=== PATIENT | female | born 1955 | race Caucasian/White ===

== ENCOUNTER → 2017-05-28 | Outpatient (CLI) | payer OTHER ==
[~2017-05-28] MED LIST: CLIN300 PO; IBUP800; Keflex500 MG PO; LEVSOD75; LIOT5; OXYACE5T PO; PENVK250; PROG100; RXOXYACE PO; [UNRECOGNIZED DRUG - REMARK]
[2017-05-30 14:45] LABS: HPV Genotype 16 Not Detected (NOTDET); HPV Genotype 18 Not Detected (NOTDET)
[2017-06-07 14:28] LABS: HPV High Risk Other Not Detected (NOTDET)
== END | disposition home or self-care (01) ==
LOC: LAB 14:47
PROVIDERS: Obstetrics & Gynecology
DX: Z01.419 Encounter for gynecological examination (general) (routine) without abnormal findings (principal)
CPT/HCPCS: 87624; G0123

== ENCOUNTER → 2019-03-18 | Outpatient (CLI) | payer OTHER ==
[2019-03-18 10:21] LABS: Source, Urine Clean Catch
[2019-03-18 11:40] LABS: Bilirubin, Urine Neg (Neg); Blood, Urine Neg (Neg); Glucose Qualitative, Urine Neg (Neg); Ketones, Urine Neg (Neg); Leukocyte Esterase, Urine Neg (Neg); Nitrite, Urine Neg (Neg); Protein, Urine Neg (Neg); Specific Gravity, Urine 1.015 (1.003-1.022); Urobilinogen, Urine NORM (Normal)
[2019-03-18 11:52] LABS: Appearance, Urine Clear (Clear); Color, Urine Yellow (P-Yellow)
== END | disposition home or self-care (01) ==
LOC: LAB SHORT 10:20 → OLS 10:20
PROVIDERS: Internal Medicine
DX: E55.9 Vitamin D deficiency, unspecified (principal); R82.90 Unspecified abnormal findings in urine
CPT/HCPCS: 81003

== ENCOUNTER 2021-03-16 08:30 | Day surgery (SDC) | payer OTHER ==
[~2021-03-16] VITALS: Ht 152.4 cm; Wt 73.9 kg
== END 2021-03-16 11:10 | disposition home or self-care (01) ==
LOC: ORSCSDS 08:30
DX: Z12.11 Encounter for screening for malignant neoplasm of colon (principal); Z86.010 Personal history of colon polyps; Z80.0 Family history of malignant neoplasm of digestive organs; D12.2 Benign neoplasm of ascending colon; D12.3 Benign neoplasm of transverse colon; D12.4 Benign neoplasm of descending colon; D12.5 Benign neoplasm of sigmoid colon; K57.30 Diverticulosis of large intestine without perforation or abscess without bleeding; K64.8 Other hemorrhoids; E03.9 Hypothyroidism, unspecified; Z79.899 Other long term (current) drug therapy
CPT/HCPCS: 88305; J0330; J0461; J2405; J2704; J7120

== ENCOUNTER 2022-01-06 16:46 | Emergency (ER) | payer OTHER ==
[~2022-01-06] VITALS: Ht 152.4 cm; Wt 76.2 kg
[2022-01-06] MEDS ORDERED: EPIPEN0.3 MG/0.3 IM (18:52)
== END 2022-01-06 19:03 | disposition home or self-care (01) ==
LOC: ER 16:46
DX: T63.451A Toxic effect of venom of hornets, accidental (unintentional), initial encounter (principal); R22.0 Localized swelling, mass and lump, head; Y92.9 Unspecified place or not applicable; Z91.041 Radiographic dye allergy status; Z91.09 Other allergy status, other than to drugs and biological substances; Z79.899 Other long term (current) drug therapy
CPT/HCPCS: J1100

== ENCOUNTER 2022-08-03 14:48 | Observation (INO) | payer OTHER ==
[~2022-08-03] VITALS: Ht 152.4 cm; Wt 64.4 kg
[~2022-08-03 14:48] MED LIST changes: +EPIPEN0.3 MG/0.3 IM
[2022-08-03 15:22] LABS: BASOPHILS ABSOLUTE AUTO 0.05 K/mm3 (0.00-0.23); BASOPHILS PERCENT AUTO 0 % (0-2); EOSINOPHILS ABSOLUTE AUTO 0.13 K/mm3 (0.00-0.68); EOSINOPHILS PERCENT AUTO 1 % (0-6); Hematocrit 32.5 % (33.0-51.0); Hemoglobin 10.7 g/dL (11.5-16.0); IMMATURE GRAN ABSOLUTE AUTO 0.13 K/mm3 (0.00-0.10); IMMATURE GRAN PERCENT AUTO 1 % (0-1); LYMPHOCYTES ABSOLUTE AUTO 0.92 K/mm3 (0.84-5.20); LYMPHOCYTES PERCENT AUTO 5 % (21-46); MONOCYTES ABSOLUTE AUTO 1.18 K/mm3 (0.16-1.47); MONOCYTES PERCENT AUTO 6 % (4-13); Mean Corpuscular HGB 31.7 pg (26.0-34.0); Mean Corpuscular HGB Conc 32.9 g/dL (31.5-36.5); Mean Corpuscular Volume 96 fL (80-100); Mean Platelet Volume 10.2 fL (9.1-12.4); NEUTROPHILS ABSOLUTE AUTO 16.53 K/mm3 (1.96-9.15); NEUTROPHILS PERCENT AUTO 87 % (41-73); Platelet Count 260 K/mm3 (150-400); RDW Standard Deviation 49.4 fL (35.1-46.3); Red Blood Cell Count 3.38 M/mm3 (3.80-5.20); White Blood Cell Count 18.94 K/mm3 (4.00-11.30)
[2022-08-03 15:44] LABS: Albumin, Blood 3.2 g/dL (3.4-5.0); Albumin/Globulin Ratio 1.1 (0.8-1.8); Bilirubin, Total 0.3 mg/dL (0.1-1.0); Bun/Creatinine Ratio 28.7 (12.0-20.0); Calcium, Blood 8.7 mg/dL (8.5-10.1); Creatinine, Blood 1.08 mg/dL (0.40-1.00); Potassium, Blood 4.1 mmol/L (3.5-5.5); Total Protein, Blood 6.2 g/dL (6.4-8.2)
[2022-08-03] MEDS ORDERED: EUTHYROX75 MC1 PO (16:04)
[2022-08-03] MEDS ORDERED: LIOT5 PO (16:04)
[2022-08-03] MEDS ORDERED: PROGESTERONE100 M1 PO (16:05)
--- NOTE | 2022-08-03 18:37 | NUR ---
PATIENT CAME UP FROM ER TODAY AT 1600. PATIENT IS A&OX4 AND IS ANSWERING QUESTIONS APPROPRIATELY. SHE REPORTS SLIGHT NAUSEA AND DIZZINESS. SHE HAS SO FAR BEEN GIVEN PO ZOFRAN. SHE DENIES PAIN. SHE IS ABLE TO MOVE FINGERS AND TOES WHEN ASKED. DENIES NUMBNESS OR TINGLING IN ALL EXTREMITIES. SHE IS TOLERATING SMALL AMOUNTS OF WATER AT THIS TIME. PATIENT WAS A SBA TO THE BATHROOM AND WAS ABLE TO VOID. SHE IS LAYING IN BED WITH CALL LIGHT IN REACH.
--- NOTE | 2022-08-04 04:21 | NUR ---
SHIFT SUMMARY AOX4, ANSWERS ORIENTATION QUESTIONS APPROPRIATE. ABLE TO FOLLOW SIMPLE DIRECTIONS. VSS. REPORTS MILD 2/10 MID FOREHEAD HEADACHE @HS, MEDICATED c TYLENOL 1x & NO FURTHER HEADACHE REPORTED. 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 REPORTS DIZZINESS UPON SITTING UP TO SIDE OF BED & FEELING "WOBBLY" WITH AMBULATION, 1P ASSIST TO RESTROOM. REPORTS R LOW BACK PAIN & R SCAPULA PAIN FROM FALL, DENIES NEED FOR MEDICATION, BRUISING NOTED R LOWER BACK. HAS SM SCAB c DRIED BLOOD ON BACK OF R SIDE OF HEAD, NO ACTIVE BLEEDING NOTED. CALL LIGHT IN REACH & PT ABLE TO MAKE NEEDS KNOWN. WILL MONITOR.
[2022-08-04 04:56] LABS: BASOPHILS ABSOLUTE AUTO 0.02 K/mm3 (0.00-0.23); BASOPHILS PERCENT AUTO 0 % (0-2); EOSINOPHILS ABSOLUTE AUTO 0.11 K/mm3 (0.00-0.68); EOSINOPHILS PERCENT AUTO 2 % (0-6); Hematocrit 26.1 % (33.0-51.0); Hemoglobin 8.5 g/dL (11.5-16.0); IMMATURE GRAN ABSOLUTE AUTO 0.02 K/mm3 (0.00-0.10); IMMATURE GRAN PERCENT AUTO 0 % (0-1); LYMPHOCYTES ABSOLUTE AUTO 1.17 K/mm3 (0.84-5.20); LYMPHOCYTES PERCENT AUTO 17 % (21-46); MONOCYTES ABSOLUTE AUTO 0.76 K/mm3 (0.16-1.47); MONOCYTES PERCENT AUTO 11 % (4-13); Mean Corpuscular HGB 31.6 pg (26.0-34.0); Mean Corpuscular HGB Conc 32.6 g/dL (31.5-36.5); Mean Corpuscular Volume 97 fL (80-100); Mean Platelet Volume 10.3 fL (9.1-12.4); NEUTROPHILS ABSOLUTE AUTO 4.78 K/mm3 (1.96-9.15); NEUTROPHILS PERCENT AUTO 70 % (41-73); Platelet Count 220 K/mm3 (150-400); RDW Coefficient Variation 14.3 % (11.7-14.2); RDW Standard Deviation 50.4 fL (35.1-46.3); Red Blood Cell Count 2.69 M/mm3 (3.80-5.20); White Blood Cell Count 6.86 K/mm3 (4.00-11.30)
[2022-08-04 05:37] LABS: Bun/Creatinine Ratio 21.4 (12.0-20.0); Calcium, Blood 7.8 mg/dL (8.5-10.1); Creatinine, Blood 0.98 mg/dL (0.40-1.00); Potassium, Blood 4.2 mmol/L (3.5-5.5)
[2022-08-04] MEDS ORDERED: ACET325 PO (10:25)
--- NOTE | 2022-08-04 12:41 | NUR ---
DISCHARGE PATIENT EATING, DRINKING, & VOIDING W/O DIFFICULTY. AMBULATING WELL SBA. REPORTS PAIN TO BE TOLERABLE. DENIES DIZZINESS/LIGHTHEADEDNESS. DISCUSSED DISHCARGE INSTRUCTIONS & SENT WITH PATIENT. ESCORTED OUT VIA W/C.
== END 2022-08-04 12:30 | disposition home or self-care (01) ==
LOC: ER 14:48 → SURS 16:10
PROVIDERS: Student in an Organized Health Care Education/Training Program; ADMIT Surgery
DX: S06.0X0A Concussion without loss of consciousness, initial encounter (principal); S30.0XXA Contusion of lower back and pelvis, initial encounter; V80.010A Animal-rider injured by fall from or being thrown from horse in noncollision accident, initial encounter; E03.9 Hypothyroidism, unspecified; Z79.890 Hormone replacement therapy; Z79.899 Other long term (current) drug therapy
CPT/HCPCS: 36415; 70450; 71045; 71260; 72125; 72170; 74177; 80048; 80053; 85025; 86850; 86900; 86901; 90686; 93005; 93010; 96374-59; 97110; 97162; 99285-25; A9270; G0008; G0378; J1953; J3480; J7030; Q9967

== ENCOUNTER 2022-09-16 16:25 | Emergency (ER) | payer OTHER ==
[~2022-09-16] VITALS: Ht 152.4 cm; Wt 66.7 kg
[~2022-09-16 16:25] MED LIST changes: +ACET325 PO; +EUTHYROX75 MC1 PO; +LIOT5 PO; +PROGESTERONE100 M1 PO
[2022-09-16 18:29] VITALS: BP 139/73
== END 2022-09-16 23:21 | disposition home or self-care (01) ==
LOC: ER 16:25
DX: S90.02XA Contusion of left ankle, initial encounter (principal); S09.90XA Unspecified injury of head, initial encounter; Z91.041 Radiographic dye allergy status; Z91.048 Other nonmedicinal substance allergy status; W20.8XXA Other cause of strike by thrown, projected or falling object, initial encounter
CPT/HCPCS: 73610; 96372; 99284-25; J1885